=== PATIENT | female | born 1990 | race African-American/Black ===

== ENCOUNTER 2016-10-19 11:36 | Emergency (ER) | payer MEDICAID ==
[2016-10-19 11:44] VITALS: BP 115/78
== END 2016-10-19 13:47 | disposition home or self-care (01) ==
LOC: ED 11:36
DX: S05.02XA Injury of conjunctiva and corneal abrasion without foreign body, left eye, initial encounter (principal); X58.XXXA Exposure to other specified factors, initial encounter; Y93.89 Activity, other specified; Y99.8 Other external cause status; Y92.89 Other specified places as the place of occurrence of the external cause
CPT/HCPCS: 90715